=== PATIENT | male | born 1940 | race Caucasian/White ===

== ENCOUNTER 2020-04-15 13:15 | Emergency (ER) | payer MEDICARE, OTHER ==
[2020-04-15 13:25] VITALS: BP 137/70
--- NOTE | 2020-04-15 13:49 | ER Document Report ---
ED Hand/Wrist Injury - General Chief Complaint: Thumb Injury Stated Complaint: RIGHT THUMB PAIN Time Seen by Provider: 04/15/20 13:41 Mode of Arrival: Ambulatory Information source: Patient Notes: 79-year-old male presented to ED for slipping and falling over his neighbors dog landing on his left knee and right thumb. He states his left knee is tender but his right thumb is not looking right. REVIEW OF SYSTEMS: CONSTITUTIONAL : Denies fever, chills, or sweats. Denies recent illness. EENT: Denies eye, ear, throat, or mouth pain or symptoms. Denies nasal or sinus congestion. MUSCULOSKELETAL: Denies neck or back pain or joint pain or swelling. SKIN: Denies rash or skin lesions. HEMATOLOGIC : Denies easy bruising or bleeding. LYMPHATIC: Denies swollen, enlarged glands. NEUROLOGICAL: Denies altered mental status or loss of consciousness. Denies headache. Denies weakness or paralysis or loss of use of either side. Denies problems with gait or speech. Denies sensory or motor loss. ALL OTHER SYSTEMS REVIEWED AND NEGATIVE. VITAL SIGNS: Within normal limits. MUSCULOSKELETAL: Good range of motion of all major joints. Extremities without clubbing, cyanosis or edema. NEUROLOGICAL: Alert and oriented x 3. No focal sensory or strength deficits. Speech normal. Follows commands appropriately. PSYCHIATRIC: Normal Affect, judgement and mood. SKIN: Normal appearance with no rashes or lesions. - HPI Injury to: Thumb Onset: This morning Where: Outdoors Timing: Still present Quality of pain: Sharp Severity: Mild Pain Level: 2 - Related Data Allergies/Adverse Reactions: No Known Allergies Allergy (Verified 04/15/20 13:47) Past Medical History - Social History Smoking Status: Current Every Day Smoker Cigarette use (# per day): Yes - 1/2 ppd Frequency of alcohol use: None Drug Abuse: None Lives with: Family Family History: Reviewed & Not Pertinent Patient has suicidal ideation: No Patient has homicidal ideation: No - Past Medical History Cardiac Medical History: Reports: Hx DVT Pulmonary Medical History: Reports: Hx COPD EENT Medical History: Reports: None Neurological Medical History: Reports: None Endocrine Medical History: Reports: None Renal/ Medical History: Reports: None Malignancy Medical History: Reports None GI Medical History: Reports: Hx Colonoscopy Musculoskeletal Medical History: Reports Hx Arthritis, Reports Hx Musculoskeletal Deformity, Reports Hx Musculoskeletal Trauma Skin Medical History: Reports None Psychiatric Medical History: Reports: None Traumatic Medical History: Reports: Hx Fractures - Multiple fractures to include neck rotator cuff tears on both shoulders Past Surgical History: Reports: Hx Orthopedic Surgery - Bilateral shoulders, neck, left carpal tunnel, Hx Vascular Surgery - DVT to the leg Physical Exam - Vital signs Vitals: Temp Pulse Resp BP Pulse Ox 98.1 F 51 L 20 137/70 H 94 04/15/20 13:23 04/15/20 13:23 04/15/20 13:04/15/20 13:04/15/20 13:23 Course - Vital Signs Vital signs: Temp Pulse Resp BP Pulse Ox 98.1 F 51 L 20 137/70 H 94 04/15/20 13:23 04/15/20 13:23 04/15/20 13:04/15/20 13:04/15/20 13:23 - Diagnostic Test Radiology reviewed: Image reviewed, Reports reviewed Procedures - Immobilization Right Finger Thumb Time completed: 14:38 Pre-Proc Neuro Vasc Exam: Normal Immobilizer type: Finger splint (Static) Performed by: PCT Post-Proc Neuro Vasc Exam: Normal Alignment checked and good: Yes Discharge - Discharge Clinical Impression: Fracture Distal phalanx first digit right Condition: Stable Disposition: HOME, SELF-CARE Additional Instructions: You have a fracture of the distal phalanx of your right thumb that goes into the joint space and is mildly displaced. Have spoken with the orthopedics hospitalist. He stated that she would need a splint and follow-up with him on Friday. You also have arthritis at the base of the thumb. I have given you a written report of your x-ray for your hand and your knee. There is no valuable radiological evidence for any acute fractures of the knee you do have mild degenerative changes and arthritis. You have some bone spurring on the patella on your left knee. Fractured Thumb There is a fracture in your thumb. The bone is straight and in good position to heal. The doctor has assessed the seriousness of the fracture and has explained your treatment plan. Because the thumb is mobile and vulnerable to reinjury, this fracture requires greater protection than a finger fracture. Usually, the thumb will be splinted until fracture healing is complete. A cast is sometimes required, although this depends more on the individual patient's activities than on the nature of the fracture. Healing of a thumb fracture usually takes four to six weeks. The first few days after the injury, the thumb should be kept elevated and cold (with ice packs). This decreases the swelling and pain. Call the doctor or return at once if pain or swelling becomes severe, or if the thumb becomes numb. Some degree of bruising is normal with a thumb fracture. Acetaminophen Acetaminophen may be taken for pain relief or fever control. It's much safer than aspirin, offering a wider range of "safe" dosages. It is safe during . Some brand names are Tylenol, Panadol, Datril, Anacin 3, Tempra, and Liquiprin. Acetaminophen can be repeated every four hours. The following are maximum recommended dosages: WEIGHT Dose Drops Elixir Chewable(80mg) (LBS.) drprs=droppers tsp=teaspoon 6 40 mg .4 ml (1/2) 6-11 80 mg .8 ml (full) 1/2 tsp 1 tab 12-16 120 mg 1 1/2 drprs 3/4 tsp 1 1/2 tabs 17-23 160 mg 2 drprs 1 tsp 2 tabs 24-30 240 mg 3 drprs 1 1/2 tsp 3 tabs 30-35 320 mg 2 tsp 4 tabs 36-41 360 mg 2 1/4 tsp 4 1/2 tabs 42-47 400 mg 2 1/2 tsp 5 tabs 48-53 480 mg 3 tsp 6 tabs 54-59 520 mg 3 1/4 tsp 6 1/2 tabs 60-64 560 mg 3 1/2 tsp 7 tabs 65-70 600 mg 3 3/4 tsp 7 1/2 tabs 71-76 640 mg 4 tsp 8 tabs 77-82 720 mg 4 1/2 tsp 9 tabs 83-88 800 mg 5 tsp 10 tabs >89 pounds or adults 650 mg to 900 mg Acetaminophen can be repeated every four hours. Maximum daily dose not to exceed 4000 mg. These maximum recommended dosages are slightly higher than the dosages written on the product container, but these dosages are very safe and well below the toxic dosage for acetaminophen. Ibuprofen Ibuprofen is an excellent, safe drug for pain control. In addition, it has potent antiinflammatory effects which are beneficial, especially in the treatment of injuries, arthritis, or tendonitis. It's best to take ibuprofen with food. Persons with ulcer disease or allergy to aspirin should notify their physician of this before taking ibuprofen. Take the medication exactly as prescribed. Don't take additional doses unless instructed to do so by your doctor. If you develop wheezing, shortness of breath, hives, faintness, stomach pain, vomiting, or dark black stools, return for re-evaluation at once. Ice & Elevation Apply ice packs frequently against the painful area. Many different schedules are recommended, such as "20 minutes on, 20 minutes off" or "one hour ice, two hours rest." If you need to work, you may need to go longer between ice treatments. You should plan to have the area ice packed AT LEAST one-fourth of the time. The ice should be applied over the wrap, tape, or splint, or over a layer of cloth -- not directly against the skin. Some ice bags have a built-in cloth and can be put directly on the skin. Your injured part should be elevated as much as possible over the next 48 hours. Try to keep the injury above the level of the heart. Avoid use of the injured area. Elevation and rest will decrease the swelling. FOLLOW-UP CARE: If you have been referred to a physician for follow-up care, call the physicians office for an appointment as you were instructed or within the next two days. If you experience worsening or a significant change in your symptoms, notify the physician immediately or return to the Emergency Department at any time for re-evaluation. Forms: Elevated Blood Pressure Referrals: CELESTINA ROSSI JR, DO [ACTIVE PROVISIONAL STAFF] - 04/17/20
--- NOTE | 2020-04-15 14:12 | RADIOLOGY REPORT (SQ) ---
EXAM DESCRIPTION: HAND RIGHT 3 VIEWS IMAGES COMPLETED DATE/TIME: 04/15/2020 1:52 pm REASON FOR STUDY: Fall injury and pain COMPARISON: None. EXAM PARAMETERS: NUMBER OF VIEWS: Three views. TECHNIQUE: AP, lateral and oblique radiographic images acquired of the right hand. LIMITATIONS: None. FINDINGS: MINERALIZATION: Normal. BONES: There is a mildly displaced fracture at the base of the 1st distal phalanx with the fracture l ine extending into the interphalangeal joint. Degenerative changes are noted at the 1st carpometacar pal joint with joint space narrowing and osteophytosis. SOFT TISSUES: There is soft tissue swelling at the thumb. No radiopaque foreign bodies identified. Vascular calcifications are noted. IMPRESSION: 1. Mildly displaced intra-articular fracture at the base of the right 1st distal phalan x. 2. Base of the thumb arthritis. TECHNICAL DOCUMENTATION: JOB ID: [id number] 2010 [employer]- All Rights Reserved Reading location - IP/workstation name: [email or web address]
--- NOTE | 2020-04-15 14:15 | RADIOLOGY REPORT (SQ) ---
EXAM DESCRIPTION: KNEE LEFT 4 VIEW IMAGES COMPLETED DATE/TIME: 04/15/2020 1:56 pm REASON FOR STUDY: Fall bruising injury COMPARISON: None. NUMBER OF VIEWS: Four views. TECHNIQUE: AP, lateral, and both oblique radiographic images acquired of the left knee. LIMITATIONS: None. FINDINGS: MINERALIZATION: Normal. BONES: No acute fracture or dislocation. Mild degenerative changes are noted at the medial tibiofemo ral compartment. Bony spur at the patella. JOINT: No significant effusion. SOFT TISSUES: No soft tissue swelling. No radio-opaque foreign body. IMPRESSION: No radiographic evidence for acute fracture at the left knee. TECHNICAL DOCUMENTATION: JOB ID: [id number] [employer]- All Rights Reserved Reading location - IP/workstation name: [email or web address]
== END 2020-04-15 14:39 | disposition home or self-care (01) ==
LOC: ER 13:15
PROC: 2W3GX1Z Immobilization of Right Thumb using Splint (ICD-10-PCS; principal; 2020-04-15)
DX: S62.521A Displaced fracture of distal phalanx of right thumb, initial encounter for closed fracture (principal); M79.644 Pain in right finger(s); M25.562 Pain in left knee; W01.0XXA Fall on same level from slipping, tripping and stumbling without subsequent striking against object, initial encounter; F17.210 Nicotine dependence, cigarettes, uncomplicated; Z86.718 Personal history of other venous thrombosis and embolism; J44.9 Chronic obstructive pulmonary disease, unspecified
CPT/HCPCS: 99284